=== PATIENT | female | born 1995 | race African-American/Black ===

== ENCOUNTER 2020-05-22 13:52 | Emergency (ER) | payer BC ==
[2020-05-22] MEDS ORDERED: ACETAMINOPHEN 325 MG TABLET (FP) PO ONE (13:53)
[2020-05-22 14:07] VITALS: BP 149/83; PULSE 89; TEMP 100.3; BMI 26.5
[2020-05-22] MEDS ORDERED: ACETAMINOPHEN 500 MG TABLET (FP) ONE (14:10)
== END 2020-05-22 15:04 | disposition home or self-care (01) ==
LOC: FER 13:52
DX: M79.671 Pain in right foot (principal)
CPT/HCPCS: 73610-TC-RT-FY; 73630-TC-RT-FY; 99283-25

== ENCOUNTER 2020-07-07 14:20 | Emergency (ER) | payer BC, OTHER ==
[2020-07-07 14:40] VITALS: BMI 24.7
[2020-07-07 19:16] VITALS: BP 129/80; PULSE 100; TEMP 98.4
[2020-07-07 19:38] LABS: EPI CELLS >36 /uL (0-25.1); HYALINE CASTS 1 /uL (0-3.1); URINE APPEARANCE CLOUDY; URINE BACTERIA 1005 /uL (0-1359); URINE BILIRUBIN NEGATIVE (NEGATIVE); URINE COLOR YELLOW; URINE GLUCOSE (UA) NEGATIVE (NEGATIVE); URINE KETONE NEGATIVE (NEGATIVE); URINE LEUK ESTERASE NEGATIVE (NEGATIVE); URINE NITRITE NEGATIVE (NEGATIVE); URINE PROTEIN NEGATIVE (NEGATIVE); URINE RBC 1 /uL (0-23.9); URINE UROBILINOGEN 0.2 mg/dL (0.2-1.0); URINE WBC 11 /uL (0-25.8)
== END 2020-07-07 19:15 | disposition home or self-care (01) ==
LOC: JER 14:20
DX: O26.899 Other specified pregnancy related conditions, unspecified trimester (principal); R10.9 Unspecified abdominal pain
CPT/HCPCS: 36415; 76817-TC; 81003; 84702; 86850; 86900; 86901; 87086; 99284-25

== ENCOUNTER 2021-05-22 15:35 | Emergency (ER) | payer BC, OTHER ==
[2021-05-22 16:23] VITALS: BP 122/78; PULSE 84; TEMP 98.8; BMI 24.0
[2021-05-26 01:06] LABS: SARS-CoV-2 NAA Detected (Not Detected)
== END 2021-05-22 16:32 | disposition home or self-care (01) ==
LOC: FER 15:35
DX: R09.89 Other specified symptoms and signs involving the circulatory and respiratory systems (principal)
CPT/HCPCS: 99283-25; C9803; U0003; U0005